=== PATIENT | male | born 1955 | race African-American/Black ===

== ENCOUNTER → 2018-03-07 | Outpatient (CLI) | payer MEDICARE ==
[~2018-03-07] MED LIST: ATOR-2 PO; BRILINTA PO; CARV25TA47 PO; CELE200C PO; ESOM40CA PO; FARXIGA PO; ISOS60TA4 PO; JENTADUETO PO; LOSA50TA20 PO; RANO500T3 PO
== END | disposition home or self-care (01) ==
LOC: MRI 10:35
PROVIDERS: ATTEND Internal Medicine Nephrology
DX: M48.02 Spinal stenosis, cervical region (principal)
CPT/HCPCS: 72141